=== PATIENT | male | born 1950 | race Hispanic/Latino ===

== ENCOUNTER 2017-10-11 05:43 | Day surgery (SDC) | payer MEDICARE ==
[2017-10-07 15:15] VITALS: BP 115/66
[2017-10-07 15:40] LABS: BASOPHILS % (AUTO) 0.6 % (0.0-5.0); EOSINOPHILS % (AUTO) 2.8 % (0.0-8.0); HEMATOCRIT 31.4 % (42-54); LYMPHOCYTES % (AUTO) 21.5 % (21.0-51.0); MEAN CORPUSCULAR HEMOGLOBIN 29.5 pg (27.0-33.0); MEAN CORPUSCULAR VOLUME 86.6 fL (79-99); MONOCYTES % (AUTO) 8.1 % (3.0-13.0); PLATELET COUNT (AUTO) 481 K/uL (130-400); RED BLOOD CELL COUNT(AUTO) 3.62 MIL/uL (4.50-6.20); RED CELL DISTRIBUTION WIDTH 15.4 % (11.0-15.5); WHITE BLOOD COUNT (AUTO) 9.6 K/uL (4.8-10.8)
[2017-10-07 15:50] LABS: CREATININE 1.2 mg/dL (0.5-1.5); POTASSIUM 4.3 mmol/L (3.5-5.1)
[~2017-10-11] VITALS: Ht 157.5 cm; Wt 65.3 kg
[2017-10-11] VITALS (19 sets, daily range): BP systolic 106–144; BP diastolic 58–82
[~2017-10-11 05:43] MED LIST: ATOR40TA71 PO; ENAL10TA PO; FINA5TAB41 PO; TAMS-1 PO
[2017-10-11] MEDS ORDERED: WATER FOR INJECTION,STERILE 5 ML VIAL INJ SCH (06:00)
[2017-10-11] MEDS: CEFTRIAXONE SODIUM 1 GM IVP SCH ×2 (07:00→08:55)
[2017-10-11] MEDS: LACTATED RINGERS 1000ML 1,000 ML IV SCH ×2 (08:08→09:30)
[2017-10-11] MEDS ORDERED: SUCCINYLCHOLINE 200MG/10ML SYR ONE (08:45)
[2017-10-11] MEDS ORDERED: GLYCOPYRROLATE 0.2 MG/ML 5 ML VIAL ONE (08:45)
[2017-10-11] MEDS ORDERED: ONDANSETRON HCL 4 MG/2 ML VIAL ONE (08:45)
[2017-10-11] MEDS ORDERED: DEXAMETHASONE SOD PHOSPHATE 10MG/ML 1ML VIAL ONE (08:45)
[2017-10-11] MEDS ORDERED: NEOSTIGMINE METHYLSULFATE 1MG/ML IV ONE (08:45)
[2017-10-11] MEDS ORDERED: PROPOFOL 10 MG/ML 20ML VIAL IV ONE (08:46)
[2017-10-11] MEDS ORDERED: FENTANYL CITRATE PF 50 MCG/1 ML 5ML AMP IV ONE (08:46)
[2017-10-11] MEDS ORDERED: MIDAZOLAM HCL 1 MG/ML 2ML VIAL ONE (08:46)
[2017-10-11] MEDS ORDERED: NALOXONE HCL 0.4 MG/1 ML ML ONE (09:17)
== END 2017-10-11 12:50 | disposition home or self-care (01) ==
LOC: DAH 05:43 → DAHIP 05:43 → UNDOADMOB 05:43 → EDSTATUS 09:30 → DAH 12:50
PROVIDERS: ATTEND Surgery
DX: N40.1 Benign prostatic hyperplasia with lower urinary tract symptoms (principal); R33.8 Other retention of urine; N32.89 Other specified disorders of bladder; E78.5 Hyperlipidemia, unspecified; I10 Essential (primary) hypertension; D64.9 Anemia, unspecified; Z98.890 Other specified postprocedural states; Z79.82 Long term (current) use of aspirin; Z83.3 Family history of diabetes mellitus; Z87.440 Personal history of urinary (tract) infections
CPT/HCPCS: 36415 ×2; 52000; 80048; 85025; 86850 ×2; 86900 ×2; 86901 ×2; 87088; 93005; A4344; A4354; A4358; A4930; A5113; J0330; J0696; J1100; J2250; J2310; J2405; J2704; J2710; J3010; J3490; J7120 ×2